=== PATIENT | female | born 1960 | race Two or more races ===

== ENCOUNTER 2025-03-01 19:05 | Emergency (ER) | payer MEDICAID ==
[~2025-03-01] VITALS: Ht 160 cm; Wt 82.0 kg
[2025-03-01 19:15] VITALS: O2SAT 98
[2025-03-01 20:04] LABS: PLATELET 267 x1000/uL (130-400); RED BLOOD CELL COUNT 6.05 mill/uL (4.2-5.4); RED CELL DISTRIBUTION WIDTH 15.5 % (11.6-14.6)
[2025-03-01 20:16] LABS: CREATININE 0.8 mg/dL (0.6-1.0); UREA NITROGEN BLOOD 13 mg/dL (9-23)
[2025-03-01 20:17] LABS: INR 1.0
[2025-03-01] MEDS: KETOROLAC 30MG/ML VIAL IV ONE (21:02)
[2025-03-01 21:54] VITALS: BP 163/91; PULSE 97; RESP 19; TEMP 36.7; O2SAT 98
== END 2025-03-01 22:39 | disposition home or self-care (01) ==
LOC: ER 19:05
DX: M25.561 Pain in right knee (principal); M79.604 Pain in right leg; I10 Essential (primary) hypertension; E78.5 Hyperlipidemia, unspecified; Z88.0 Allergy status to penicillin; Z79.899 Other long term (current) drug therapy
CPT/HCPCS: 80048; 85027; 85379; 85610; 85730; 86850; 86900; 86901; 36415; 93971; 93005; 96374; 99285; J1885; Z7610